=== PATIENT | male | born 1960 | race Asian ===

== ENCOUNTER → 2017-12-08 | Outpatient (CLI) | payer OTHER | END | disposition home or self-care (01) | LOC: CFH 12:04 | PROVIDERS: ATTEND Family Medicine | DX: Z12.2 Encounter for screening for malignant neoplasm of respiratory organs (principal); J98.4 Other disorders of lung; I25.10 Atherosclerotic heart disease of native coronary artery without angina pectoris; Z87.891 Personal history of nicotine dependence | CPT/HCPCS: G0297 ==

== ENCOUNTER 2019-08-22 21:25 | Emergency (ER) | payer BC ==
[~2019-08-22] VITALS: Ht 165.1 cm; Wt 64.0 kg
[~2019-08-22 21:25] MED LIST: AMLO-150 PO; CEFD300C37 PO; CIPR500T87 PO; INSU100V13 SQ; JENUVIA; LINA145C PO; LOSA100T14 PO; LOSA1TAB22 PO; METF1000 PO; METFORMIN; POLY17PO5 PO; SENN-193 PO; SITA100T PO; SULF1TAB24 PO; TRAZ-137 PO
--- NOTE | 2019-08-22 22:42 | NUR ---
PT AMBULATORY FROM TRIAGE C STEADY GAIT C FAMILY. PT STATES OVER LAST ~2WEEKS HIS BP HAS NOT BEEN UNDERCONTROL. & INTERMITTENT DIZZINESS. DENIES CONTACTING HIS PCP. PLACED ON MONITOR. MD AT BS. WILL CTM. FAMILY REMAINS AT BS.
[2019-08-22 23:11] LABS: BASOPHILS # (AUTO) 0.05 x10^3/uL (0-0.1); BASOPHILS % (AUTO) 1 % (0-1); EOSINOPHILS % (AUTO) 2 % (1-7); LYMPHOCYTES # (AUTO) 2.16 x10^3/uL (1-3.4); LYMPHOCYTES % (AUTO) 38 % (22-44); MD NO; MEAN CORPUSCULAR HEMOGLOBIN 30.8 pg (27.5-34.5); MEAN CORPUSCULAR HGB CONC 33.5 g/dL (33.2-36.2); MEAN PLATELET VOLUME 7.7 fL (7.4-10.4); MONOCYTES # (AUTO) 0.74 x10^3/uL (0.2-0.8); MONOCYTES % (AUTO) 13 % (2-9); NEUTROPHILS # (AUTO) 2.59 x10^3/uL (1.8-6.8); NEUTROPHILS % (AUTO) 46 % (42-75); PLATELET COUNT 215 x10^3/uL (130-400); RED CELL DISTRIBUTION WIDTH 14.8 % (9.4-14.8)
[2019-08-22 23:17] LABS: ALANINE AMINOTRANSFERASE 51 U/L (12-78); ALBUMIN 3.9 g/dL (3.4-5.0); ANION GAP 4 mmol/L (5-15); CHLORIDE 101 mmol/L (98-107); CREATININE 1.15 mg/dL (0.7-1.3)
[2019-08-22 23:21] LABS: ALKALINE PHOSPHATASE 48 U/L (45-117); BILIRUBIN,TOTAL 0.4 mg/dL (0.2-1.0); TOTAL PROTEIN 7.9 g/dL (6.4-8.2); TROPONIN I < 0.015 ng/mL (0.000-0.045)
[2019-08-22] MEDS ORDERED: AMLODIPINE 5 MG TABLET ONE (23:56)
--- NOTE | 2019-08-22 23:59 | NUR ---
TASK RN: PT MEDICATED PER EMAR FOR HTN. POC IS DC POST IMPROVEMENT IN BP.
[2019-08-23] MEDS ORDERED: AMLODIPINE 5 MG TABLET PO ONE
[2019-08-23 00:17] VITALS: BP 183/91
--- NOTE | 2019-08-23 00:17 | NUR ---
TASK RN: BP 183-91,PT ASYMPTOMATIC. ERP AWARE AND IS OKAY WITH PLAN TO DC. DC EDUCATION PROVIDED, PT DEMONSTRATES UNDERSTANDING. PT AMBULATED STEADILY TO DC WITH RN AND SO. SO TO TRANSPORT PT HOME
== END 2019-08-23 00:20 | disposition home or self-care (01) ==
LOC: ED 23:40
DX: I10 Essential (primary) hypertension (principal); E11.65 Type 2 diabetes mellitus with hyperglycemia; E11.9 Type 2 diabetes mellitus without complications; Z87.891 Personal history of nicotine dependence; Z72.89 Other problems related to lifestyle
CPT/HCPCS: 36415; 80053; 84484; 85025; 93005; 99284

== ENCOUNTER → 2019-09-14 | Outpatient (CLI) | payer BC | END | disposition home or self-care (01) | LOC: CFH 12:13 | PROVIDERS: ATTEND Psychiatry & Neurology Neurology | DX: M25.511 Pain in right shoulder (principal); G89.29 Other chronic pain ==

== ENCOUNTER 2021-03-31 17:38 | Inpatient (IN) | payer MEDICAID, OTHER ==
[~2021-03-31] VITALS: Ht 165.1 cm; Wt 61.4 kg
[~2021-03-31 17:38] MED LIST changes: +SULF-23 PO; -SULF1TAB24 PO; -TRAZ-137 PO; +TRAZ-175 PO
[2021-03-31 20:01] VITALS: BP 146/102
[2021-03-31] MEDS ORDERED: ACETAMINOPHEN 325 MG TABLET PO PRN (20:30)
[2021-03-31] MEDS ORDERED: LIDODERM 5% PATCH TD PRN (20:30)
[2021-03-31] MEDS ORDERED: MELATONIN 5 MG TABLET PO PRN (20:30)
[2021-03-31] MEDS ORDERED: ENALAPRILAT 1.25 MG/ML, 2ML IVPush PRN (20:30)
[2021-03-31] MEDS ORDERED: DOCUSATE 100 MG CAPSULE PO PRN (20:30)
[2021-03-31] MEDS ORDERED: HYDR25TA6 PO (20:36)
[2021-03-31] MEDS ORDERED: METF10007 PO (20:36)
[2021-03-31] MEDS ORDERED: OXCA300T19 PO (20:36)
[2021-03-31] MEDS ORDERED: LINA290C PO (20:36)
[2021-03-31] MEDS ORDERED: AMLO-210 PO (20:36)
[2021-03-31] MEDS ORDERED: DULA1.5P SQ (20:36)
[2021-03-31] MEDS ORDERED: PANT40TA6 PO (20:36)
[2021-03-31] MEDS ORDERED: ROSU20TA29 PO (20:36)
[2021-03-31 21:03] LABS: ANION GAP 12 mmol/L (5-15); CALCIUM 9.3 mg/dL (8.5-10.1); CHLORIDE 84 mmol/L (98-107); CREATININE 0.88 mg/dL (0.7-1.3)
[2021-03-31 21:12] LABS: TROPONIN I < 0.015 ng/mL (0.000-0.045)
[2021-03-31 23:08] LABS: CHLORIDE,URINE RANDOM 47 mmol/L; POTASSIUM,URINE RANDOM 17 mmol/L; SODIUM,URINE RANDOM 47 mmol/L
[2021-03-31] MEDS ORDERED: SODIUM CHLORIDE 0.9% 1,000 ML IV SCH (23:30)
[2021-03-31] MEDS ORDERED: TRAZODONE 100MG TABLET ONE (23:41)
[2021-03-31] MEDS: TRAZODONE 100MG TABLET PO PRN (23:51)
[2021-03-31] MEDS: ENOXAPARIN 40 MG/0.4 ML SQ SCH (23:51)
[2021-04-01 00:02] VITALS: BP 140/97
[2021-04-01] MEDS ORDERED: DULAGLUTIDE SQ SCH (01:30)
[2021-04-01 02:18] LABS: BASOPHILS % (AUTO) 1 % (0-1); EOSINOPHILS % (AUTO) 1 % (1-7); LYMPHOCYTES % (AUTO) 28 % (22-44); MEAN CORPUSCULAR HEMOGLOBIN 30.4 pg (27.5-34.5); MEAN CORPUSCULAR HGB CONC 35.4 g/dL (33.2-36.2); MONOCYTES % (AUTO) 15 % (2-9); NEUTROPHILS % (AUTO) 56 % (42-75); PLATELET COUNT 214 x10^3/uL (130-400); RED BLOOD COUNT 4.15 x10^6/uL (4.38-5.82); RED CELL DISTRIBUTION WIDTH 13.9 % (9.4-14.8)
[2021-04-01 02:29] LABS: ANION GAP 10 mmol/L (5-15); CALCIUM 8.6 mg/dL (8.5-10.1); CHLORIDE 89 mmol/L (98-107); CREATININE 0.77 mg/dL (0.7-1.3)
[2021-04-01 02:38] LABS: TROPONIN I < 0.015 ng/mL (0.000-0.045)
[2021-04-01] MEDS ORDERED: TRAZODONE 100MG TABLET PO PRN (06:30)
[2021-04-01] MEDS ORDERED: POTASSIUM CHLORIDE 20 MEQ TAB.ER.PRT PO ONE (06:30)
[2021-04-01] MEDS: INSULIN LISPRO 100 UNITS/ML, PEN SQ-INSULIN SCH ×4 (08:16→21:00)
[2021-04-01 08:28] LABS: ANION GAP 9 mmol/L (5-15); CALCIUM 8.7 mg/dL (8.5-10.1); CHLORIDE 93 mmol/L (98-107); CREATININE 0.79 mg/dL (0.7-1.3)
[2021-04-01] MEDS: PANTOPRAZOLE 40MG TABLET PO SCH ×3 (08:46→21:20)
[2021-04-01] MEDS: AMLODIPINE 5 MG TABLET PO SCH (08:46)
[2021-04-01] MEDS: OXCARBAZEPINE 300MG TABLET PO SCH ×2 (08:47→21:19)
[2021-04-01 08:51] VITALS: BP 141/94
[2021-04-01] MEDS ORDERED: ROSUVASTATIN CALCIUM PO SCH (09:00)
[2021-04-01] MEDS ORDERED: metFORMIN 500 MG TABLET PO SCH (09:00)
[2021-04-01] MEDS ORDERED: HYDROCHLOROTHIAZIDE 25 MG TABLET PO SCH (09:00)
[2021-04-01] MEDS ORDERED: PNEUMOC 13-VALENT VACC, 0.5 ML IM-VACC ONE (09:30)
[2021-04-01] MEDS ORDERED: PNEUMOCOCCAL 23 VACCINE IM ONE (09:30)
[2021-04-01] MEDS ORDERED: [UNRECOGNIZED DRUG - OTHER] MC PRN (09:30)
[2021-04-01] MEDS ORDERED: **MANDATORY - MENING,PNEU,HAEMOPH- PICK 1 OF EACH MC PRN (09:30)
[2021-04-01] MEDS ORDERED: MENING VAC A,C,Y,W-135 DIP/PF (MENACTRA AGES 2-55) 0.5 ML IM-VACC ONE ×2 (09:30)
[2021-04-01] MEDS ORDERED: DIPHTHERIA-TETANUS ADULT 0.5ML IM-VACC ONE (09:30)
[2021-04-01] MEDS ORDERED: FLU VACCINE PER PHARMACY IM ONE ×2 (09:30)
[2021-04-01] MEDS ORDERED: HAEMOPH B POLY CONJ-TET TOX/PF 10 MCG/0.5 ML INJ IM-VACC ONE (09:30)
[2021-04-01 13:50] VITALS: BP 126/82
[2021-04-01 14:53] LABS: ANION GAP 10 mmol/L (5-15); CALCIUM 9.1 mg/dL (8.5-10.1); CHLORIDE 96 mmol/L (98-107)
[2021-04-01 14:54] LABS: CREATININE 0.93 mg/dL (0.7-1.3)
[2021-04-01] MEDS ORDERED: GABAPENTIN 100 MG CAPSULE ONE (15:23)
[2021-04-01] MEDS ORDERED: GABAPENTIN 100 MG CAPSULE PO ONE (15:30)
[2021-04-01] MEDS: metFORMIN 500 MG TABLET PO SCH (16:58)
[2021-04-01 19:47] VITALS: BP 110/55
[2021-04-01 19:54] VITALS: BP 123/79
[2021-04-01] MEDS: ATORVASTATIN 80 MG TABLET PO SCH (21:19)
[2021-04-01] MEDS: TRAZODONE 100MG TABLET PO PRN (21:20)
[2021-04-01] MEDS ORDERED: SODIUM CHLORIDE 0.9% 1,000 ML IV SCH (23:30)
[2021-04-01] MEDS: ENOXAPARIN 40 MG/0.4 ML SQ SCH (23:34)
[2021-04-02] VITALS: BP 123/81
[2021-04-02 06:28] LABS: BASOPHILS % (AUTO) 1 % (0-1); EOSINOPHILS % (AUTO) 1 % (1-7); LYMPHOCYTES % (AUTO) 34 % (22-44); MEAN CORPUSCULAR HEMOGLOBIN 30.4 pg (27.5-34.5); MEAN CORPUSCULAR HGB CONC 34.4 g/dL (33.2-36.2); MEAN PLATELET VOLUME 7.1 fL (7.4-10.4); MONOCYTES % (AUTO) 14 % (2-9); NEUTROPHILS % (AUTO) 51 % (42-75); PLATELET COUNT 201 x10^3/uL (130-400); RED BLOOD COUNT 3.95 x10^6/uL (4.38-5.82)
[2021-04-02 07:02] VITALS: BP 149/96
[2021-04-02 07:54] LABS: ANION GAP 7 mmol/L (5-15); CHLORIDE 97 mmol/L (98-107); CREATININE 0.83 mg/dL (0.7-1.3)
[2021-04-02] MEDS: PANTOPRAZOLE 40MG TABLET PO SCH ×3 (08:26→21:58)
[2021-04-02] MEDS: metFORMIN 500 MG TABLET PO SCH ×2 (08:26→17:47)
[2021-04-02] MEDS: AMLODIPINE 5 MG TABLET PO SCH (08:26)
[2021-04-02] MEDS: OXCARBAZEPINE 300MG TABLET PO SCH (08:27)
[2021-04-02] MEDS: INSULIN LISPRO 100 UNITS/ML, PEN SQ-INSULIN SCH ×4 (08:27→20:16)
[2021-04-02] MEDS: GABAPENTIN 100 MG CAPSULE PO SCH ×3 (12:11→21:58)
[2021-04-02 12:13] VITALS: BP 152/72
[2021-04-02 18:50] VITALS: BP 116/74
[2021-04-02] MEDS: ATORVASTATIN 80 MG TABLET PO SCH (21:57)
[2021-04-02] MEDS: TRAZODONE 100MG TABLET PO PRN (21:57)
[2021-04-02 23:58] VITALS: BP 152/95
[2021-04-03 00:01] VITALS: BP 143/91
[2021-04-03] MEDS: ENOXAPARIN 40 MG/0.4 ML SQ SCH (00:03)
[2021-04-03 06:19] LABS: BASOPHILS % (AUTO) 1 % (0-1); EOSINOPHILS % (AUTO) 2 % (1-7); LYMPHOCYTES % (AUTO) 39 % (22-44); MEAN CORPUSCULAR HEMOGLOBIN 30.4 pg (27.5-34.5); MEAN CORPUSCULAR HGB CONC 34.3 g/dL (33.2-36.2); MEAN PLATELET VOLUME 7.2 fL (7.4-10.4); MONOCYTES % (AUTO) 9 % (2-9); NEUTROPHILS % (AUTO) 50 % (42-75); PLATELET COUNT 217 x10^3/uL (130-400); RED BLOOD COUNT 3.75 x10^6/uL (4.38-5.82); RED CELL DISTRIBUTION WIDTH 13.8 % (9.4-14.8)
[2021-04-03 06:25] LABS: ANION GAP 7 mmol/L (5-15); CALCIUM 8.8 mg/dL (8.5-10.1); CHLORIDE 98 mmol/L (98-107)
[2021-04-03 06:27] LABS: CREATININE 0.86 mg/dL (0.7-1.3)
[2021-04-03 06:56] VITALS: BP 149/99
[2021-04-03] MEDS: INSULIN LISPRO 100 UNITS/ML, PEN SQ-INSULIN SCH ×3 (07:23→16:34)
[2021-04-03] MEDS: GABAPENTIN 100 MG CAPSULE PO SCH ×2 (08:57→16:35)
[2021-04-03] MEDS: PANTOPRAZOLE 40MG TABLET PO SCH ×2 (08:57→16:35)
[2021-04-03] MEDS: AMLODIPINE 5 MG TABLET PO SCH (08:57)
[2021-04-03] MEDS: metFORMIN 500 MG TABLET PO SCH ×2 (08:57→16:35)
[2021-04-03 12:13] VITALS: BP 96/66
[2021-04-03] MEDS ORDERED: GABA-826 PO (15:45)
== END 2021-04-03 17:07 | DRG 641 ==
LOC: 4WST 18:10
PROVIDERS: ADMIT Internal Medicine; ATTEND Family Medicine
DX: E87.1 Hypo-osmolality and hyponatremia (principal); D64.9 Anemia, unspecified; E11.9 Type 2 diabetes mellitus without complications; E78.5 Hyperlipidemia, unspecified; G47.00 Insomnia, unspecified; I10 Essential (primary) hypertension; K21.9 Gastro-esophageal reflux disease without esophagitis; M25.511 Pain in right shoulder; M25.512 Pain in left shoulder; Z85.118 Personal history of other malignant neoplasm of bronchus and lung; Z88.1 Allergy status to other antibiotic agents
CPT/HCPCS: 36415; 70450; 80048; 82436; 82962; 83036; 83930; 83935; 84133; 84300; 84443; 84484; 85025; G0378; J1650; J1815; J7030

== ENCOUNTER → 2021-05-05 | Outpatient (CLI) | payer OTHER ==
[~2021-05-05] MED LIST changes: +AMLO-210 PO; +DULA1.5P SQ; +GABA-826 PO; +HYDR25TA6 PO; +LINA290C PO; +METF10007 PO; +OXCA300T19 PO; +PANT40TA6 PO; +ROSU20TA29 PO
== END | disposition home or self-care (01) ==
LOC: RAD 13:48
PROVIDERS: ATTEND Psychiatry & Neurology Child & Adolescent Psychiatry
DX: G31.89 Other specified degenerative diseases of nervous system (principal); G04.81 Other encephalitis and encephalomyelitis; M62.81 Muscle weakness (generalized); R26.81 Unsteadiness on feet
CPT/HCPCS: 70551